=== PATIENT | female | born 1980 | race American Indian/Alaskan Native ===

== ENCOUNTER 2017-05-11 11:00 | Emergency (ER) | payer SELFPAY ==
[2017-05-11 12:32] LABS: Basophils % (Auto) 0.4 % (0.0-1.8); Eosinophils # (Auto) 0.1 K/mm3 (0.0-0.4); Eosinophils % (Auto) 2.3 % (0.0-4.3); Hematocrit 47.5 % (30.3-42.9); Lymphocytes # (Auto) 1.7 K/mm3 (1.2-5.4); Lymphocytes % (Auto) 34.6 % (13.4-35.0); Mean Corpuscular HGB Conc 32 % (30-34); Mean Corpuscular Volume 72 fl (79-97); Monocytes # (Auto) 0.6 K/mm3 (0.0-0.8); Monocytes % (Auto) 12.6 % (0.0-7.3); Red Blood Count 6.62 M/mm3 (3.65-5.03); Red Cell Distribution Width 15.1 % (13.2-15.2)
[2017-05-11 12:41] LABS: BUN/Creatinine Ratio 13; Blood Urea Nitrogen 8 mg/dL (7-17); Calcium 8.8 mg/dL (8.4-10.2); Hemolysis Index 28; Mean Corpuscular Hemoglobin 23 pg (28-32)
[2017-05-11 12:48] LABS: Platelet Count 153 K/mm3 (140-440)
--- NOTE | 2017-05-11 13:09 | XRay Report ---
ROUTINE CHEST, TWO VIEWS: HISTORY: Shortness of breath. The trachea, heart, mediastinal contour, lung clements and bony thorax are unremarkable. IMPRESSION: Unremarkable chest x-ray.
--- NOTE | 2017-05-11 16:07 | Emergency Department Report ---
ED Shortness of Breath HPI - General Chief Complaint: Dyspnea/Respdistress Stated Complaint: SOB/LIGHTHEADED/FEVER Time Seen by Provider: 05/11/17 16:02 Source: patient Mode of arrival: Ambulatory Limitations: No Limitations - History of Present Illness Initial Comments: Radha is a 37-year-old female presents emergency room with shortness of breath productive cough green sputum 4 days and dizziness 2 days. Patient states she feels presyncopal. She also complains of neck and back pain. Patient states she had chest pain but has resolved. Patient also states she's had fever 2 days ago but none now. She has a past medical history of asthma. MD Complaint: shortness of breath, cough, chest pain -: Gradual Severity: moderate Pain Scale: 5 Consistency: intermittent Improves With: rest, bronchodilators Worsens With: lying flat, exertion, movement Known History Of: asthma Context: recent URI Associated Symptoms: chest pain, fever, cough, sputum production Treatments Prior to Arrival: none - Related Data Home Oxygen Therapy: No Previous Rx's Medication Instructions Recorded Last Taken Type Azithromycin [Zithromax Tri-Yang] 500 mg PO DAILY 3 Days #3 tablet 05/11/17 Unknown Rx methylPREDNISolone [Medrol] 4 mg PO DAILY 6 Days #1 tab.ds.pk 05/11/17 Unknown Rx Allergies Allergy/AdvReac Type Severity Reaction Status Date / Time Penicillins Allergy Anaphylaxis Verified 05/11/17 11:42 Sulfa (Sulfonamide Allergy Anaphylaxis Verified 05/11/17 11:42 Antibiotics) ED Review of Systems ROS: Stated complaint: SOB/LIGHTHEADED/FEVER Other details as noted in HPI Comment: All other systems reviewed and negative Constitutional: see HPI, fever. denies: chills Eyes: denies: eye pain, eye discharge, vision change ENT: denies: ear pain, throat pain Respiratory: see HPI, cough, shortness of breath. denies: wheezing Cardiovascular: chest pain. denies: palpitations Endocrine: no symptoms reported Gastrointestinal: denies: abdominal pain, nausea, diarrhea Genitourinary: denies: urgency, dysuria, discharge Musculoskeletal: back pain. denies: joint swelling, arthralgia Skin: denies: rash, lesions Neurological: denies: headache, weakness, paresthesias Psychiatric: denies: anxiety, depression Hematological/Lymphatic: denies: easy bleeding, easy bruising ED Past Medical Hx - Past Medical History Previous Medical History?: Yes Hx Asthma: Yes - Surgical History Past Surgical History?: No - Family History Family history: no significant - Social History Smoking Status: Current Every Day Smoker Substance Use Type: None - Medications Home Medications: Home Medications Medication Instructions Recorded Confirmed Last Taken Type Azithromycin [Zithromax Tri-Yang] 500 mg PO DAILY 3 Days #3 tablet 05/11/17 Unknown Rx methylPREDNISolone [Medrol] 4 mg PO DAILY 6 Days #1 tab.ds.pk 05/11/17 Unknown Rx ED Physical Exam - General Limitations: No Limitations General appearance: alert, in no apparent distress - Head Head exam: Present: atraumatic, normocephalic - Eye Eye exam: Present: normal appearance - ENT ENT exam: Present: mucous membranes moist, TM's normal bilaterally - Expanded ENT Exam Expanded Throat exam: Positive: tonsillar erythema - Neck Neck exam: Present: normal inspection - Respiratory Respiratory exam: Present: normal lung sounds bilaterally. Absent: respiratory distress - Cardiovascular Cardiovascular Exam: Present: regular rate, normal rhythm. Absent: systolic murmur, diastolic murmur, rubs, gallop - GI/Abdominal GI/Abdominal exam: Present: soft, normal bowel sounds - Extremities Exam Extremities exam: Present: normal inspection - Back Exam Back exam: Present: normal inspection, full ROM - Neurological Exam Neurological exam: Present: alert, oriented X3, normal gait, motor sensory deficit, other (negative meningeal signs) - Psychiatric Psychiatric exam: Present: normal affect, normal mood - Skin Skin exam: Present: warm, dry, intact, normal color. Absent: rash ED Course Vital Signs 05/11/17 05/11/17 05/11/17 11:42 14:52 17:48 Temperature 98.2 F 98.7 F Pulse Rate 98 H 78 88 Respiratory 20 16 18 Rate Blood Pressure 129/79 Blood Pressure 117/82 131/79 [Right] O2 Sat by Pulse 100 99 100 Oximetry ED Medical Decision Making - Lab Data Result diagrams: 05/11/17 11:52 05/11/17 11:52 - EKG Data -: EKG Interpreted by [facility] EKG shows normal: sinus rhythm Rate: normal - EKG Data Interpretation: no acute changes, normal EKG - Radiology Data Radiology results: report reviewed No acute findings on chest x-ray - Medical Decision Making Patient is a 37-year-old female that comes emergency room with shortness of breath cough. Patient is stable for discharge. All labs and diagnostic reviewed with patient. Will send home patient with treatment for asthmatic bronchitis. Discharge instructions given to patient patient encouraged to follow up with primary care as soon as possible and take medications as directed - Differential Diagnosis asthma, uri. bronchitis. cough Critical care attestation.: If time is entered above; I have spent that time in minutes in the direct care of this critically ill patient, excluding procedure time. ED Disposition Clinical Impression: Chest pain, Shortness of breath, Fever, Cough, Asthma, Bronchitis, Upper respiratory infection Disposition: TO HOME OR SELFCARE Is pt being admited?: No Does the pt Need Aspirin: No Condition: Stable Instructions: Chest Pain (ED), Asthma (ED), Acute Bronchitis (ED) Additional Instructions: Patient is to follow up with primary care in 3-5 days. Patient to return to ER if condition worsens. Patient to take Tylenol ibuprofen when necessary. Patient take prescriptions as directed. rest. increase water Prescriptions: Azithromycin [Zithromax Tri-Yang] 500 mg PO DAILY 3 Days #3 tablet methylPREDNISolone [Medrol] 4 mg PO DAILY 6 Days #1 tab.ds.pk Referrals: FIGUEROA RAMIREZ MD [Primary Care Provider] - 3-5 Days Time of Disposition: 18:16
[2017-05-11 17:48] VITALS: BP 131/79
== END 2017-05-11 18:32 | disposition home or self-care (01) ==
LOC: ED 11:00
DX: J40 Bronchitis, not specified as acute or chronic (principal); J06.9 Acute upper respiratory infection, unspecified; J45.909 Unspecified asthma, uncomplicated; F17.200 Nicotine dependence, unspecified, uncomplicated; Z88.0 Allergy status to penicillin; Z88.2 Allergy status to sulfonamides
CPT/HCPCS: 36415; 71046; 80048; 84484; 84703; 85025; 85379; 87400; 93005; 93010; 99284

== ENCOUNTER 2017-07-29 10:05 | Emergency (ER) | payer SELFPAY ==
[2017-07-29 11:53] LABS: Basophils % (Auto) 0.3 % (0.0-1.8); Eosinophils # (Auto) 0.1 K/mm3 (0.0-0.4); Eosinophils % (Auto) 0.7 % (0.0-4.3); Hematocrit 39.8 % (30.3-42.9); Hemoglobin 12.9 gm/dl (10.1-14.3); Lymphocytes # (Auto) 1.7 K/mm3 (1.2-5.4); Lymphocytes % (Auto) 18.7 % (13.4-35.0); Mean Corpuscular HGB Conc 32 % (30-34); Mean Corpuscular Hemoglobin 23 pg (28-32); Mean Corpuscular Volume 71 fl (79-97); Monocytes # (Auto) 0.5 K/mm3 (0.0-0.8); Monocytes % (Auto) 5.6 % (0.0-7.3); Platelet Count 166 K/mm3 (140-440); Red Blood Count 5.61 M/mm3 (3.65-5.03); Red Cell Distribution Width 15.3 % (13.2-15.2)
[2017-07-29 12:05] LABS: Bilirubin,Urine NEG (Negative); Blood,Urine LG (Negative); Color,Urine Yellow (Yellow); Mucus,Urine FEW /HPF; Protein,Urine <15 mg/dL mg/dL (Negative); Urobilinogen,Urine < 2.0 mg/dL (<2.0)
[2017-07-29 12:06] LABS: RBC,Urine > 182.0 /HPF (0.0-6.0)
--- NOTE | 2017-07-29 13:57 | Ultrasound Report ---
ULTRASOUND PELVIC COMPLETE ULTRASOUND TRANSVAGINAL HISTORY: Vaginal bleeding during , beta ACC level 1463. COMPARISON: None. TECHNIQUE: Transabdominal and transvaginal ultrasound with color doppler interrogation. FINDINGS: Uterus: 9 x 4 x 5 cm. No uterine mass. Normal cervix. Endometrium: The endometrium measures 15 mm. There is moderate fluid in the endometrial canal which may represent blood products. No intrauterine is demonstrated. No heart. Right ovary: 2.6 x 1.8 x 1.4 cm. No focal abnormality. Left ovary: 3.7 x 2.3 x 3.5 cm. There is a 2.4 cm complex area within the left ovary which probably represents a corpus luteum cyst. No pelvic fluid or mass is identified. Normal color doppler interrogation. IMPRESSION: No intrauterine is visualized at this time. There appears to be moderate fluid within the endometrial canal which could represent blood products. This could represent a spontaneous . Please note that an ectopic is not entirely excluded at this time.
--- NOTE | 2017-07-29 16:21 | Emergency Department Report ---
ED HPI - General Chief complaint: Vaginal Bleeding Stated complaint: BLEEDING HEAVY Time Seen by Provider: 07/29/17 14:57 Source: patient Mode of arrival: Wheelchair Limitations: No Limitations - History of Present Illness Initial comments: This is a 37 y.o. female that presents with abdominal pain and . Patient reports LMP 06/23/2017. She took a test at home and it was positive this past Friday. She is not followed by [facility] currently. She had an appointment this morning for emergency medicaid and confirmation of with a clinic but unable to make appointment due to heavy bleeding. Patient reports wearing overnight pads and having to changed pads every hour. Pain is similar to hard cramps during contractions and radiating to right and left flank from bilateral lower pelvic area. Patient reports cramping started after taking a walk around neighborhood at 1800 last night. Denies clots, fever, nausea/vomiting, dizziness, weakness, and dysuria. MD Complaint: vaginal bleeding -: Last night Location: pelvis Radiation: L flank, R flank Severity: moderate Severity scale (0 -10): 7 Quality: cramping Consistency: intermittent Improves with: none Worsens with: none Associated symptoms: vaginal bleeding, abdominal pain. denies: nausea/vomiting , vaginal discharge, dysuria, headache, vision changes, malaise, dysparuenia, rash, seizure, shortness of breath, syncope, weakness Vaginal bleeding: heavy :: Yes Number of weeks : 6 OB History - Current : no complications OB History - Previous Pregnancies: no complications Last menstrual period: 06/23/17 Pre-александр care: none - Related Data : 4 Para: 2 Ab: 1 Previous Rx's Medication Instructions Recorded Last Taken Type Azithromycin [Zithromax Tri-Yang] 500 mg PO DAILY 3 Days #3 tablet 05/11/17 Unknown Rx methylPREDNISolone [Medrol] 4 mg PO DAILY 6 Days #1 tab.ds.pk 05/11/17 Unknown Rx Allergies Allergy/AdvReac Type Severity Reaction Status Date / Time Penicillins Allergy Anaphylaxis Verified 05/11/17 11:42 Sulfa (Sulfonamide Allergy Anaphylaxis Verified 05/11/17 11:42 Antibiotics) ED Review of Systems ROS: Stated complaint: BLEEDING HEAVY Other details as noted in HPI Constitutional: denies: chills, fever Respiratory: denies: cough, shortness of breath, wheezing Cardiovascular: denies: chest pain, palpitations, edema, syncope Gastrointestinal: abdominal pain (bilateral lower abdominal pain radiating to bilateral flanks). denies: nausea, diarrhea, hematochezia Genitourinary: other (vaginal bleeding). denies: urgency, dysuria, discharge Skin: denies: rash, lesions Neurological: denies: headache, weakness, paresthesias Psychiatric: denies: anxiety, depression ED Past Medical Hx - Past Medical History Previous Medical History?: Yes Hx Asthma: Yes Additional medical history: vaginal delivery x2 - Surgical History Past Surgical History?: Yes - Social History Smoking Status: Never Smoker Substance Use Type: Alcohol - Medications Home Medications: Home Medications Medication Instructions Recorded Confirmed Last Taken Type Azithromycin [Zithromax Tri-Yang] 500 mg PO DAILY 3 Days #3 tablet 05/11/17 Unknown Rx methylPREDNISolone [Medrol] 4 mg PO DAILY 6 Days #1 tab.ds.pk 05/11/17 Unknown Rx ED Physical Exam - General Limitations: No Limitations General appearance: alert, in no apparent distress - Respiratory Respiratory exam: Present: normal lung sounds bilaterally. Absent: respiratory distress, wheezes, rales, rhonchi, stridor, decreased breath sounds - Cardiovascular Cardiovascular Exam: Present: regular rate, normal rhythm, normal heart sounds. Absent: systolic murmur, diastolic murmur, rubs, gallop - GI/Abdominal GI/Abdominal exam: Present: soft, normal bowel sounds. Absent: distended, guarding, rebound, rigid, organomegaly, mass - Back Exam Back exam: Present: normal inspection. Absent: CVA tenderness (R), CVA tenderness (L), muscle spasm, rash noted - Neurological Exam Neurological exam: Present: alert, oriented X3, normal gait - Psychiatric Psychiatric exam: Present: normal affect, normal mood - Skin Skin exam: Present: warm, dry, intact, normal color. Absent: rash ED Course Vital Signs 07/29/17 11:10 Temperature 98.8 F Pulse Rate 80 Respiratory 20 Rate Blood Pressure 143/105 O2 Sat by Pulse 100 Oximetry ED Medical Decision Making - Lab Data Result diagrams: 07/29/17 11:44 - Radiology Data Radiology results: report reviewed No intrauterine is visualized at this time. There appears to be moderate fluid within the endometrial canal which could represent blood products. This could represent a spontaneous . Please note that an ectopic is not entirely excluded at this time. - Medical Decision Making This is a 37 y.o. Female presents with vaginal bleeding and abdominal cramps for 1 day. Patient was evaluated by me. LMP 06/23/2017. A1. She has not established [facility]. Obtained CBC, BMP, HCG serum, and UA. HCG 1463, UA large amount of blood. and OB US obtained and read by radiologist. No intrauterine is visualized at this time. There appears to be moderate fluid within the endometrial canal which could represent blood products. This could represent a spontaneous . Please note that an ectopic is not entirely excluded at this time. Consulted OB, Dr. Echols and advised to have patient f/u in 24-48 hours in her office for repeat HCG quant. Patient informed of results and given referral to Dr. Echols. Critical care attestation.: If time is entered above; I have spent that time in minutes in the direct care of this critically ill patient, excluding procedure time. ED Disposition Clinical Impression: Vaginal bleeding affecting early , Abdominal pain affecting Disposition: - TO HOME OR SELFCARE Is pt being admited?: No Does the pt Need Aspirin: No Condition: Stable Instructions: (ED), Ectopic (ED), Abdominal Pain in (ED) Additional Instructions: Follow up with Dr. Echols from referrals in 24-48 hours. Have labs repeated for serum HCG quant. Return to ER if vaginal bleeding increase and pain is increased, or dizziness. Referrals: DOMINICK DOMINGUEZ MD [Staff Physician] - 3-5 Days [facility] [Provider Group] - 3-5 Days Forms: Work/School Release Form(ED) Time of Disposition: 16:36 Print Language: SWEDISH
[2017-07-29 16:56] VITALS: BP 137/78
== END 2017-07-29 16:56 | disposition home or self-care (01) ==
LOC: ED 10:05
DX: O20.9 Hemorrhage in early pregnancy, unspecified (principal); O26.891 Other specified pregnancy related conditions, first trimester; J45.909 Unspecified asthma, uncomplicated; R10.2 Pelvic and perineal pain; Z88.0 Allergy status to penicillin; Z88.2 Allergy status to sulfonamides; Z3A.01 Less than 8 weeks gestation of pregnancy
CPT/HCPCS: 36415; 76801; 76817; 81001; 84702; 85025; 86850; 86900; 86901; 99284